=== PATIENT | male | born 1995 | race Caucasian/White ===

== ENCOUNTER 2017-08-24 13:45 | Emergency (ER) | payer OTHER ==
[2017-08-24 13:59] VITALS: BP 144/74; PULSE 88; TEMP 98.6; O2SAT 100; BMI 20.9
[2017-08-24 14:14] VITALS: RESP 20
[2017-08-24] MEDS ORDERED: Tetanus/Diphtheria Toxoids 0.5 ml Syringe IM ONE ×2 (14:33→14:45)
--- NOTE | 2017-08-24 14:35 | C.PDOC ---
History Of Present Illness 21 year old male presents to the emergency department following a fall that he took while running. Patient states that whilst taking the fall he hurt his head and his left hand, resulting in bleeding. Patient states some of the blood from his head wound was rinsed off. Patient denies nausea and vomiting, and is unsure of his tetanus vaccination. - HPI Time Seen by Provider: 08/24/17 14:19 Chief Complaint (Nursing): Abnormal Skin Integrity History Per: Patient History/Exam Limitations: no limitations Onset/Duration Of Symptoms: Hrs Location Of Injury: Left: Hand, Posterior: Head - Fall Fall:Prior To Injury: Tripped Past Medical History Reviewed: Historical Data, Nursing Documentation, Vital Signs Vital Signs: Last Vital Signs Temp 98.6 F 08/24/17 14:11 Pulse 88 08/24/17 14:11 Resp 20 08/24/17 14:11 BP 144/74 08/24/17 14:11 Pulse Ox 100 08/24/17 14:36 - Medical History PMH: No Chronic Diseases Surgical History: No Surg Hx Family History: States: No Known Family Hx - Social History Hx Alcohol Use: No Hx Substance Use: No - Immunization History Hx Tetanus Toxoid Vaccination: No Hx Influenza Vaccination: No Hx Pneumococcal Vaccination: No Review Of Systems Except As Marked, All Systems Reviewed And Found Negative. Gastrointestinal: Negative for: Nausea, Vomiting Musculoskeletal: Positive for: Hand Pain, Other (head pain) Physical Exam - Physical Exam Appears: In Acute Distress Skin: Other (Abrasion on left occipitoparietal scalp about 1cm. Two abrasions on left palm 1/2cm. ) Head: Tenderness (to the occipitoparietal region), Abrasion (1cm abrasion in occipitoparietal region) Respiratory: Normal Breath Sounds Extremity: Left: Other (no foreign body presence in left palm. Two abrasions about 1/cm in diameter. Palm is soft and nontender.) Neurological/Psych: Oriented x3, Normal Speech, Normal Cognition ED Course And Treatment O2 Sat by Pulse Oximetry: 100 (RA) Pulse Ox Interpretation: Normal Progress Note: Patient was unsure regarding his tetanus vaccination, therefore he was administered Tenivac 0.5ml IM. Medical Decision Making Medical Decision Making: Patient was advised regarding possibly receiving a staple in his head, but that it would heal normally on it's own; patient denied the staple. Patient was advised regarding an X-ray for his hand; patient denied the x-ray. Disposition Counseled Patient/Family Regarding: Diagnosis, Need For Followup - Disposition Referrals: YOUR,PMD [Other] Disposition: HOME/ ROUTINE Disposition Time: 14:33 Condition: IMPROVED Instructions: Wound Care (DC), Minor Head Injury (DC) Forms: [facility] (M[place]ese), Work Excuse - Clinical Impression Clinical Impression: Minor head injury without loss of consciousness, Scalp laceration, Multiple abrasions, Hand sprain - Scribe Statement The provider has reviewed the documentation as recorded by the Scribe (Ayo Mary Alice) Provider Attestation: All medical record entries made by the Scribe were at my direction and personally dictated by me. I have reviewed the chart and agree that the record accurately reflects my personal performance of the history, physical exam, medical decision making, and the department course for this patient. I have also personally directed, reviewed, and agree with the discharge instructions and disposition.
== END 2017-08-24 14:50 | disposition home or self-care (01) ==
LOC: C.ER 13:45
DX: S01.01XA Laceration without foreign body of scalp, initial encounter (principal); S60.512A Abrasion of left hand, initial encounter; S63.92XA Sprain of unspecified part of left wrist and hand, initial encounter; W18.30XA Fall on same level, unspecified, initial encounter; Y93.02 Activity, running